=== PATIENT | male | born 1960 | race Two or more races ===

== ENCOUNTER → 2016-11-18 | Outpatient (CLI) | payer OTHER ==
--- NOTE | 2016-11-18 16:04 | Diagnostic Imaging Report ---
Indication: OSTEOMY Technique: Sagittal, axial, coronal T1 FSE and FSE STIR images obtained of the ankle Comparison: None Findings: A marker pham the area of pain in the region of the lateral malleolus. There is also edema at the interface between the muscular compartment of the subcutaneous fat anterolateral to the the Achilles tendon. There is slight edema of the subcutaneous fat in in the lateral malleolar region which is contiguous.. No focal fluid collection. No marrow signal abnormality is demonstrated. Impression: Evidence of minimal edema in the region of the lateral malleolus, and posterolateral subcutaneous fat, could indicate cellulitis. Correlate with clinical findings No marrow signal abnormality to suggest osteomyelitis.
== END | disposition home or self-care (01) ==
LOC: MRI 12:33
DX: L03.116 Cellulitis of left lower limb (principal)